=== PATIENT | female | born 1960 | race Caucasian/White ===

== ENCOUNTER 2018-12-28 14:51 | Outpatient (CLI) | payer OTHER ==
--- NOTE | 2018-12-28 15:16 | BD ---
EXAM: DEXA bone density examination HISTORY: 58-year-old postmenopausal female for screening COMPARISON: None FINDINGS: L1--bone mineral density 0.760 g/sq cm; T score -2.1 L2--bone mineral density 0.775 g/sq cm; T score -2.3 L3--bone mineral density 0.719 g/sq cm; T score -3.3 L4--bone mineral density 0.722 g/sq cm; T score -3.1 Total L1-L4--bone mineral density 0.743 g/sq cm; T score -2.8 Left femoral neck--bone mineral density0.638; T score -1.9 Total proximal left femur--bone mineral density 0.892; T score -0.4 IMPRESSION: Osteoporosis
== END 2018-12-28 14:52 | disposition home or self-care (01) ==
LOC: BICMAMMO 14:51
PROVIDERS: ATTEND Obstetrics & Gynecology
DX: Z13.820 Encounter for screening for osteoporosis (principal); M81.0 Age-related osteoporosis without current pathological fracture
CPT/HCPCS: 77080

== ENCOUNTER 2021-02-17 15:18 | Outpatient (CLI) | payer BC | END 2021-02-17 15:19 | disposition home or self-care (01) | LOC: BICMAMMO 15:18 | PROVIDERS: ATTEND Obstetrics & Gynecology | DX: Z13.820 Encounter for screening for osteoporosis (principal); M81.0 Age-related osteoporosis without current pathological fracture; M85.851 Other specified disorders of bone density and structure, right thigh; M85.852 Other specified disorders of bone density and structure, left thigh | CPT/HCPCS: 77080 ==

== ENCOUNTER 2023-05-27 11:08 | Outpatient (CLI) | payer BC | END 2023-05-27 11:09 | disposition home or self-care (01) | LOC: BICMAMMO 11:08 | PROVIDERS: ATTEND Internal Medicine | DX: M81.0 Age-related osteoporosis without current pathological fracture (principal); M85.851 Other specified disorders of bone density and structure, right thigh; M85.852 Other specified disorders of bone density and structure, left thigh | CPT/HCPCS: 77080 ==